=== PATIENT | female | born 1955 | race Caucasian/White ===

== ENCOUNTER 2019-12-09 16:20 | Inpatient (IN) | payer BC ==
[~2019-12-09] VITALS: Ht 167.6 cm; Wt 65.3 kg
[2019-12-09] MEDS ORDERED: PROGESTERONE200 MG PO (16:38)
[2019-12-09] MEDS ORDERED: ARMOUR THYROID30 MG ORAL (16:38)
--- NOTE | 2019-12-09 17:07 | NUR ---
ED Nurse Note: Patient was brought in by ambulance from surgery center for pain management, stated received uterine fibroid embolization today. Patient presented calm, c/o pain 3/10, AAO x4, VSS at this time.
[2019-12-09 17:10] VITALS: BP 120/72
--- NOTE | 2019-12-09 17:13 | NUR ---
ED Nurse Note: Patient presented with IV access right AC 22 ga.
--- NOTE | 2019-12-09 17:14 | Emergency Room Report ---
History of Present Illness General Chief Complaint: Pain Source: Patient Present Illness HPI Patient is a 63-year-old female brought in from surgery Center for increased suprapubic pain. Patient had a recent uterine artery embolization. This was performed by Dr. Richard Duffy. Patient had some slight dizziness after the procedure and has some suprapubic pain. Denies any chest discomfort or shortness of breath. she had recent travel from [place]. Denies any other current complaints. Prior history of fibroids. Also has been taking thyroid medication. 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 Patient History Past Medical History: see triage record Reviewed Nursing Documentation: PMH: Agreed; PSxH: Agreed Nursing Documentation-PMH Past Medical History: No History, Except For Hx Cancer: Yes - Left breast CA with lumpectomy Review of Systems All Other Systems: negative except mentioned in HPI Physical Exam Vital Signs Date Time Temp Pulse Resp B/P (MAP) Pulse Ox O2 Delivery O2 Flow Rate FiO2 12/09/19 16:30 98.2 80 16 120/72 (88) 99 Room Air Sp02 EP Interpretation: reviewed, normal General Appearance: normal inspection, well appearing, no apparent distress, alert, GCS 15 Head: atraumatic ENT: normal ENT inspection, hearing grossly normal, normal voice Neck: normal inspection, full range of motion, supple, no bony tend Respiratory: normal inspection, lungs clear, normal breath sounds, no respiratory distress, no retraction, no wheezing Cardiovascular #1: regular rate, rhythm, no edema Gastrointestinal: normal inspection, normal bowel sounds, non tender, soft, no guarding, no hernia Genitourinary: no CVA tenderness Musculoskeletal: normal inspection, back normal, normal range of motion Neurologic: alert, motor strength/tone normal, stock grader III-XII nml as tested, oriented x3, responsive, speech normal, normal inspection Psychiatric: normal inspection, judgement/insight normal, mood/affect normal Skin: no rash Medical Decision Making Diagnostic Impression: Primary Impression: Postoperative abdominal pain ER Course Patient presented for postoperative pain. Differential diagnosis include was not limited to urinary tract infection, post procedure pain, among others. Patient has a benign exam and does not appear to require any imaging or laboratory testing at this time. Patient was noted to have postoperative pain and this appears to be Related to recent procedure. Patient would be admitted to the hospital for further evaluation and treatment. Dr. Krause was contacted for inpatient management due to primary care request. Last Vital Signs Date Time Temp Pulse Resp B/P (MAP) Pulse Ox O2 Delivery O2 Flow Rate FiO2 12/09/19 16:30 98.2 80 16 120/72 (88) 99 Room Air Status: unchanged Disposition: ADMITTED INPATIENT Condition: Stable Josh Dias MD Dec 09, 2019 17:14
[2019-12-09] MEDS ORDERED: HYDROmorphone 1mg/ml Carpuject IVP PRN (18:00)
--- NOTE | 2019-12-09 18:32 | NUR ---
ED Nurse Note: Patient was transfered to the MD due to pain managmentn after her surgery. Patient was transfered to the unit via gurney, with all belongings. Patient AAO x4, VSS at this time.
--- NOTE | 2019-12-09 18:40 | NUR ---
NURSE NOTES: Received pt from ER, pt arrived via gurney, pt transferred self to the bed. Pt is a/ox4, breaths regular unlabored on RA , c/o pain of 4/10. pt has a Calixto catheter 16fr, draining, and anchored, skin intact , IVF on Rt AC , patent asymptomatic, belongings list verified and signed. Pt oriented to the room, bed in low locked position, side rails upx2, call light with in teach, will continue to monitor
--- NOTE | 2019-12-09 19:49 | NUR ---
HAND-OFF: Report given to Nhan ALLEN, pt stable.
[2019-12-09 20:00] VITALS: BP 126/72
[2019-12-09] MEDS ORDERED: MIRALAX17 G2 ORAL (20:17)
[2019-12-09] MEDS: Miralax 17gm pkt ORAL SCH (20:30)
[2019-12-09] MEDS: oxyCODONE HCL/Acetaminophen 5/325mg ORAL PRN (20:35)
[2019-12-09] MEDS ORDERED: Potassium Chloride 20 MEQ in Dextrose 5%/Lactated Ringer's 1,000 ML IV SCH (21:00)
--- NOTE | 2019-12-09 21:00 | NUR ---
NURSE NOTES: Patient vomited once with yellow bile. Zofran PO was given due to nausea but it didn't appear on the vomitus. Will continue to monitor.
--- NOTE | 2019-12-09 22:00 | NUR ---
NURSE NOTES: Received patient in bed, alert and oriented x4, no SOB noted. IV access on the right antecubital g.22. In pain of 4-6/10 on lower abdomen due to procedure she had today in surgery center. Skin assessment done. Surgery site on the right groin covered with steristrips and Suresite with blood stain. Found scrapes on left elbow, left knee and some parts of bilateral lower legs. According to patient, she fell recently. Got tripped while reading. Some tiny scrapes on legs are from shaving per patient. Oriented to room. Instructed to use call light for assistance. Bed in lowest, lock engaged and alarm on. Will monitor. Spoke with Dr. Krause and obtained some orders including patient's request of Percocet and Tramadol PO. Spoke with pharmacy regarding unavailability of Progesterone. Called Dr. Stewart and left message. Waiting for call back.
[2019-12-09] MEDS: Potassium Chloride 20 MEQ in Dextrose 5%/Lactated Ringer's 1,000 ML IV SCH (23:00)
[2019-12-10] MEDS: HYDROmorphone 1mg/ml Carpuject IVP PRN ×2 (00:50→04:03)
[2019-12-10 00:55] VITALS: BP 121/68
[2019-12-10 04:50] VITALS: BP 99/52
--- NOTE | 2019-12-10 04:59 | NUR ---
NURSE NOTES: Three hours after Percocet was given, patient was still complaining of the same pain. Encouraged patient to try the IV pain med which was first ordered and bedside teaching done. Advised patient to have at least the lowest dose of IV pain shot. Almost 4 hours after the IV pain med was given patient asked for another one which she said it helped a lot with her pain. Dilaudid was given as ordered.
[2019-12-10] MEDS: Potassium Chloride 20 MEQ in Dextrose 5%/Lactated Ringer's 1,000 ML IV SCH ×3 (06:29→16:03)
--- NOTE | 2019-12-10 07:24 | NUR ---
HAND-OFF: Report given to ALEJANDRO Hurt.
--- NOTE | 2019-12-10 07:33 | NUR ---
NURSE NOTES: WALKING ROUNDS DONE WITH OUTGOING RN. PATIENT AWAKE IN BED. QUESTIONS ANSWERED NEEDS MET. DISCUSSED PLAN OF CARE FOR THE DAY. VERBALIZED UNDERSTANDING.POST-OP PAIN IMPROVED WITH IV DILAUDID. PATIENT AGREES TO HAVE FERNANDO CASTLE'Barry THIS AM.BED IN LOW AND LOCKED POSITION. CALL LIGHT WITHIN REACH.
[2019-12-10 08:00] VITALS: BP 140/62
[2019-12-10 09:53] LABS: HEMATOCRIT 35.8 % (37.0-47.0); HEMOGLOBIN 12.7 G/DL (12.0-16.0); MEAN CORPUSCULAR VOLUME 87 FL (80-99); PLATELET COUNT 220 K/UL (150-450); RED BLOOD COUNT 4.12 M/UL (4.20-5.40); RED CELL DISTRIBUTION WIDTH 10.9 % (11.6-14.8); WHITE BLOOD COUNT 9.9 K/UL (4.8-10.8)
--- NOTE | 2019-12-10 09:55 | NUR ---
*-* INSURANCE *-* ALL AVAILABLE CLINICALS HAVE BEEN FAXED TO: [facility] Ref# [id number] #[phone] fax#[phone]
[2019-12-10 10:08] LABS: ANION GAP 11 mmol/L (5-15); BLOOD UREA NITROGEN 8 mg/dL (7-18); CALCIUM 8.5 MG/DL (8.5-10.1); CARBON DIOXIDE 24 MMOL/L (21-32); CHLORIDE 107 MMOL/L (98-107); CREATININE 0.9 MG/DL (0.55-1.30); POTASSIUM 3.6 MMOL/L (3.5-5.1); SODIUM 142 MMOL/L (136-145)
[2019-12-10 10:12] LABS: ALANINE AMINOTRANSFERASE 12 U/L (12-78); ALBUMIN 2.8 G/DL (3.4-5.0); ALKALINE PHOSPHATASE 146 U/L (46-116); ASPARTATE AMINO TRANSFERASE 14 U/L (15-37); BILIRUBIN,TOTAL 0.4 MG/DL (0.2-1.0)
[2019-12-10] MEDS: Miralax 17gm pkt ORAL SCH (10:16)
--- NOTE | 2019-12-10 10:26 | History and Physical ---
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 She denied chest pain , she denied shortness of breath. Upon evaluation she was afebrile ,vital signs were stable. Patient admitted for management for postoperative abdominal pain. Per patient pain was 6/10 on a scale 1 to 10, she had 1 episode of nonbloody nonbilious emesislasy night. She received analgesics and antiemetic. She slept well last night. No bleeding from surgical site, No vaginal bleeding or discharge. This am she is felling better, labs pending, pain controlled, tolerated CL diet Allergies: Coded Allergies: CLINDAMYCIN (Verified Allergy, Unknown, 12/09/19) Dairy (Verified Allergy, Unknown, 12/10/19) EGG (Verified Allergy, Unknown, 12/10/19) GLUTEN (Verified Allergy, Unknown, 12/10/19) Throat swelling. MELOXICAM (Verified Allergy, Unknown, 12/09/19) MILK (Verified Allergy, Unknown, 12/10/19) PENICILLINS (Verified Allergy, Unknown, 12/09/19) SOY (Verified Allergy, Unknown, 12/10/19) Throat swelling. COVID-19 Screening Contact w/high risk pt: No Recent Travel to affected area: No Experienced COVID-19 symptoms?: No Medication History Scheduled Polyethylene Glycol 3350* (Miralax*), 17 GM ORAL DAILY, (Reported) Progesterone,Micronized (Progesterone), 200 MG PO BEDTIME, (Reported) Thyroid* ([place] Thyroid*), 90 MG ORAL DAILY, (Reported) Patient History Healthcare decision maker Resuscitation status Full code Advanced Directive on File Review of Systems Constitutional: Reports: no symptoms Eye: Reports: no symptoms ENT: Reports: no symptoms Respiratory: Reports: no symptoms Cardiovascular: Reports: no symptoms Gastrointestinal: Reports: see HPI Genitourinary: Reports: no symptoms Skin: Reports: no symptoms Psychiatric: Reports: no symptoms Neurological: Reports: no symptoms Endocrine: Reports: other - hx of Roxi disease Hematologic/Lymphatic: Reports: no symptoms Physical Exam General Appearance: WD/WN, no apparent distress, alert - awake Lines, tubes and drains: peripheral HEENT: normocephalic, atraumatic, anicteric, mucous membranes moist, PERRL Neck: non-tender, supple, normal inspection Respiratory/Chest: chest wall non-tender, lungs clear, no respiratory distress , no accessory muscle use Cardiovascular/Chest: normal peripheral pulses, normal rate, no JVD Abdomen: normal bowel sounds, non tender, soft, other - Band-aid R groin area Extremities: normal range of motion, non-tender, no calf tenderness, other - SCD on Skin Exam: warm/dry 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 II-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 grossly normal, no motor/sensory deficits, alert, oriented x 3, responsive Musculoskeletal: normal muscle bulk Last 24 Hour Vital Signs Date Time Temp Pulse Resp B/P (MAP) Pulse Ox O2 Delivery O2 Flow Rate FiO2 12/10/19 09:00 Room Air 12/10/19 08:00 98.0 83 20 140/62 (88) 98 12/10/19 04:50 98.6 82 18 99/52 (68) 96 12/10/19 00:55 98.3 75 17 121/68 (85) 98 12/09/19 23:20 Room Air 12/09/19 20:00 98.0 77 18 126/72 (90) 100 12/09/19 18:32 98.2 73 20 135/65 99 Room Air 12/09/19 17:10 98.2 16 120/72 99 Room Air 12/09/19 16:30 98.2 80 16 120/72 (88) 99 Room Air Intake and Output 12/09/19 12/10/19 19:00 07:00 Intake Total 1240 ml Output Total 200 ml 600 ml Balance -200 ml 640 ml Intake Oral 300 ml IV Total 940 ml Output Urine Total 200 ml 600 ml # Bowel Movements 2 Laboratory Tests Test 12/10/19 09:45 White Blood Count 9.9 K/UL (4.8-10.8) Red Blood Count 4.12 M/UL (4.20-5.40) L Hemoglobin 12.7 G/DL (12.0-16.0) Hematocrit 35.8 % (37.0-47.0) L Mean Corpuscular Volume 87 FL (80-99) Mean Corpuscular Hemoglobin 30.9 PG (27.0-31.0) Mean Corpuscular Hemoglobin Concent 35.5 G/DL (32.0-36.0) Red Cell Distribution Width 10.9 % (11.6-14.8) L Platelet Count 220 K/UL (150-450) Mean Platelet Volume 5.7 FL (6.5-10.1) L Neutrophils (%) (Auto) % (45.0-75.0) Lymphocytes (%) (Auto) % (20.0-45.0) Monocytes (%) (Auto) % (1.0-10.0) Eosinophils (%) (Auto) % (0.0-3.0) Basophils (%) (Auto) % (0.0-2.0) Neutrophils % (Manual) Pending Lymphocytes % (Manual) Pending Platelet Estimate Pending Platelet Morphology Pending Sodium Level 142 MMOL/L (136-145) Potassium Level 3.6 MMOL/L (3.5-5.1) Chloride Level 107 MMOL/L (98-107) Carbon Dioxide Level 24 MMOL/L (21-32) Anion Gap 11 mmol/L (5-15) Blood Urea Nitrogen 8 mg/dL (7-18) Creatinine 0.9 MG/DL (0.55-1.30) Estimat Glomerular Filtration Rate > 60 mL/min (>60) Glucose Level 148 MG/DL (74-106) H Calcium Level 8.5 MG/DL (8.5-10.1) Total Bilirubin Pending Aspartate Amino Transf (AST/SGOT) Pending Alanine Aminotransferase (ALT/SGPT) Pending Alkaline Phosphatase Pending Total Protein Pending Albumin Pending Globulin Pending Height (Feet): 5 Height (Inches): 6.00 Weight (Pounds): 144 Medications Current Medications Medications (Trade) Dose Ordered Sig/Andree Route PRN Reason Start Time Stop Time Status Last Admin Dose Admin Acetaminophen (Tylenol) 650 mg Q4H PRN ORAL Mild Pain (Pain Scale 1-3) 12/09/19 20:15 01/08/20 20:14 Hydromorphone HCl (Dilaudid) 1 mg Q3H PRN IVP pain 1-3 12/09/19 20:30 12/16/19 17:59 12/10/19 04:03 Hydromorphone HCl (Dilaudid) 2 mg Q2H PRN IVP PAIN 7-10 12/09/19 20:30 12/16/19 17:59 Hydromorphone HCl (Dilaudid) 2 mg Q3H PRN IVP pain 4-6 12/09/19 20:30 12/16/19 18:16 Metronidazole 100 ml @ 100 mls/hr Q12HR IVPB 12/09/19 21:00 12/16/19 20:59 12/10/19 08:50 Non-Formulary Medication (Non-Formulary Med) 1 ea DAILY ORAL 12/09/19 20:15 01/08/20 20:14 UNV Ondansetron HCl (Zofran ODT) 4 mg Q4H PRN ORAL Nausea & Vomiting 12/09/19 20:15 01/08/20 20:14 12/09/19 20:31 Ondansetron HCl (Zofran) 4 mg Q4H PRN IVP Nausea & Vomiting 12/09/19 20:15 01/08/20 20:14 12/10/19 00:43 Oxycodone/ Acetaminophen (Percocet 5-325) 1 tab Q6H PRN ORAL Severe Pain (Pain Scale 7-10) 12/09/19 20:10 12/16/19 20:09 12/09/19 20:35 Polyethylene Glycol (Miralax) 17 gm DAILY ORAL 12/09/19 20:30 01/08/20 20:29 Potassium Chloride 20 meq/ Dextrose/Lactated Ringer's 1,010 ml @ 120 mls/hr Q8H25M IV 12/09/19 21:00 01/08/20 20:59 12/10/19 06:29 Thyroid ([place] Thyroid) 90 mg ACBREAKFAST ORAL 12/10/19 07:30 01/09/20 07:29 12/10/19 07:05 Thyroid ([place] Thyroid) 90 mg ACBREAKFAST ORAL 12/11/19 06:30 01/10/20 06:29 Tramadol HCl (Ultram) 50 mg Q6H PRN ORAL Moderate Pain (Pain Scale 4-6) 12/09/19 20:15 6/9/20 20:14 Assessment/Plan Assessment/Plan: ASSESSMENT Postoperative pain Nausea with emesis episode s/p uterine artery embolization 12/08 uterine fibroids hx of breast Ca, currently cancer free Roxi thyroiditis PLAN OF CARE MS floor IVF empiric Flagyl pain management CL diet- tolerates and advance as tolerated a/emetic prn DVT prophylaxis with SCD fup with labs /pending for this am OOB as tolerated fall precautions /recent fall dc plan soon if pain controlled and labs stable case discussed and evaluated by supervising physician Mariusz Krause MD 12/10/19 1120: History of Present Illness General Reason for Hospitalization: =postoperative pain Present Illness Allergies: Coded Allergies: CLINDAMYCIN (Verified Allergy, Unknown, 12/09/19) Dairy (Verified Allergy, Unknown, 12/10/19) EGG (Verified Allergy, Unknown, 12/10/19) GLUTEN (Verified Allergy, Unknown, 12/10/19) Throat swelling. MELOXICAM (Verified Allergy, Unknown, 12/09/19) MILK (Verified Allergy, Unknown, 12/10/19) PENICILLINS (Verified Allergy, Unknown, 12/09/19) SOY (Verified Allergy, Unknown, 12/10/19) Throat swelling. Medication History Scheduled Polyethylene Glycol 3350* (Miralax*), 17 GM ORAL DAILY, (Reported) Progesterone,Micronized (Progesterone), 200 MG PO BEDTIME, (Reported) Thyroid* ([place] Thyroid*), 90 MG ORAL DAILY, (Reported) Assessment/Plan Assessment/Plan: Patient seen and examined with PAINTING SUPERVISOR. Agree with above A&P as it reflects our joint deliberations. POD 1 S/P UFE, doing well, pain controlled, continue Flagyl, anticipate D/C in am. Soraida Talley NP Dec 10, 2019 10:26 Mariusz Krause MD Dec 10, 2019 11:20
[2019-12-10 12:00] VITALS: BP 127/61
[2019-12-10] MEDS: traMADol 50mg tab ORAL PRN (12:17)
--- NOTE | 2019-12-10 14:38 | NUR ---
CASE MANAGEMENT: INITIAL REVIEW 63YR FEMALE BIBA FROM SURGERY CENTER CC: PAIN MANAGEMENT; S/P UTERINE FIBROID EMBOLIZATION SI: SURGICAL POST PROCEDURE PAIN; S/P ABLATION 98.3 80 16 120/72 99% ON RA IS:IV FLAGYL BID IV KCL/D5/LR @120ML/HR PERCOCET Q6HR/PRN PO ZOFRAN Q4HR/PRN \: [facility] CASE MANAGEMENT: REVIEW 12/10/19 SI: SURGICAL POST PROCEDURE PAIN; S/P ABLATION 97.9 84 20 127/61 96% ON RA BG 148 AST 14 ALKP 146 ALBUMIN 2.8 IS:IV FLAGYL BID IV KCL/D5/LR @120ML/HR PERCOCET Q6HR/PRN DILAUDID Q3HR/PRN IV ZOFRAN Q4HR/PRN THYROID PO QAM \: [facility] PLAN: CONTROL PAIN DC HOME ONCE PAIN IS CONTROLLED
--- NOTE | 2019-12-10 14:51 | General Surgery Progress Note ---
General Surgery-Progress Note Subjective Day of Surgery: december 08 Procedure Performed uterine fibroid embolization Symptoms: improved, tolerating diet, voiding well, passing flatus, pain decreased Objective Last 24 Hour Vital Signs Date Time Temp Pulse Resp B/P (MAP) Pulse Ox O2 Delivery O2 Flow Rate FiO2 12/10/19 12:47 98.0 12/10/19 12:00 97.9 84 20 127/61 (83) 96 12/10/19 09:00 Room Air 12/10/19 08:00 98.0 83 20 140/62 (88) 98 12/10/19 04:50 98.6 82 18 99/52 (68) 96 12/10/19 00:55 98.3 75 17 121/68 (85) 98 12/09/19 23:20 Room Air 12/09/19 20:00 98.0 77 18 126/72 (90) 100 12/09/19 18:32 98.2 73 20 135/65 99 Room Air 12/09/19 17:10 98.2 16 120/72 99 Room Air 12/09/19 16:30 98.2 80 16 120/72 (88) 99 Room Air I&O Intake and Output 12/09/19 12/10/19 19:00 07:00 Intake Total 1240 ml Output Total 200 ml 600 ml Balance -200 ml 640 ml Intake Oral 300 ml IV Total 940 ml Output Urine Total 200 ml 600 ml # Bowel Movements 2 Dressing: dry Wound: clean Drains: none Cardiovascular: RSR Respiratory: clear Abdomen: soft, flat, scaphoid, tenderness, present bowel sounds Laboratory Tests Test 12/10/19 09:45 White Blood Count 9.9 K/UL (4.8-10.8) Red Blood Count 4.12 M/UL (4.20-5.40) L Hemoglobin 12.7 G/DL (12.0-16.0) Hematocrit 35.8 % (37.0-47.0) L Mean Corpuscular Volume 87 FL (80-99) Mean Corpuscular Hemoglobin 30.9 PG (27.0-31.0) Mean Corpuscular Hemoglobin Concent 35.5 G/DL (32.0-36.0) Red Cell Distribution Width 10.9 % (11.6-14.8) L Platelet Count 220 K/UL (150-450) Mean Platelet Volume 5.7 FL (6.5-10.1) L Neutrophils (%) (Auto) % (45.0-75.0) Lymphocytes (%) (Auto) % (20.0-45.0) Monocytes (%) (Auto) % (1.0-10.0) Eosinophils (%) (Auto) % (0.0-3.0) Basophils (%) (Auto) % (0.0-2.0) Differential Total Cells Counted 100 Neutrophils % (Manual) 58 % (45-75) Lymphocytes % (Manual) 32 % (20-45) Monocytes % (Manual) 10 % (1-10) Eosinophils % (Manual) 0 % (0-3) Basophils % (Manual) 0 % (0-2) Band Neutrophils 0 % (0-8) Platelet Estimate Adequate Platelet Morphology Normal Red Blood Cell Morphology Normal Sodium Level 142 MMOL/L (136-145) Potassium Level 3.6 MMOL/L (3.5-5.1) Chloride Level 107 MMOL/L (98-107) Carbon Dioxide Level 24 MMOL/L (21-32) Anion Gap 11 mmol/L (5-15) Blood Urea Nitrogen 8 mg/dL (7-18) Creatinine 0.9 MG/DL (0.55-1.30) Estimat Glomerular Filtration Rate > 60 mL/min (>60) Glucose Level 148 MG/DL (74-106) H Calcium Level 8.5 MG/DL (8.5-10.1) Total Bilirubin 0.4 MG/DL (0.2-1.0) Aspartate Amino Transf (AST/SGOT) 14 U/L (15-37) L Alanine Aminotransferase (ALT/SGPT) 12 U/L (12-78) Alkaline Phosphatase 146 U/L (46-116) H Total Protein 5.6 G/DL (6.4-8.2) L Albumin 2.8 G/DL (3.4-5.0) L Globulin 2.8 g/dL Albumin/Globulin Ratio 1.0 (1.0-2.7) Additional Comments labs, all normal, afebrile. pain decreasing, attempting oral pain management Plan Additional Comments possible am discharge, s/w IM Richard Cervantes MD Dec 10, 2019 14:51
[2019-12-10 16:00] VITALS: BP 115/56
--- NOTE | 2019-12-10 16:39 | NUR ---
NURSE NOTES: Spoke to regarding patient and discharge patient with IV line. Order noted and carried out.
--- NOTE | 2019-12-10 16:40 | NUR ---
NURSE NOTES: Called and left massage that wants discharge patient tomorrow morning.
--- NOTE | 2019-12-10 17:31 | NUR ---
NURSE NOTES: PATIENT REMAINS STABLE.UP AMBULATING INDEPENDENTLY. GAIT STEADY.PAIN CONTROLLED WITH ULTRAM. VOIDING WITHOUT DIFFICULTY. DIET ADVANCED TO SOFT; TOLERATING WELL.
--- NOTE | 2019-12-10 19:30 | NUR ---
HAND-OFF: Report given to JENNIFER NIX RN.
--- NOTE | 2019-12-10 19:30 | NUR ---
NURSE NOTES: Receive a report from ALEJANDRO Hurt. Round is done. Pt is awake and alert. No acute distress noted. Pain is tolerating and thinking of taking which medication she would like to take. Right groin site surgical site dressing old oozing noted. Will continue to monitor.
[2019-12-10 20:00] VITALS: BP 122/78
[2019-12-10] MEDS: oxyCODONE HCL/Acetaminophen 5/325mg ORAL PRN (20:25)
[2019-12-10] MEDS ORDERED: PROGESTERONE 100 MG ORAL SCH (21:00)
[2019-12-11] VITALS: BP 140/70
--- NOTE | 2019-12-11 | NUR ---
NURSE NOTES: Pt is asleep without acute distress or pain at this time. Pt is aware of MNNPO for procedure/surgery today. Will continue to monitor.
[2019-12-11] MEDS: Potassium Chloride 20 MEQ in Dextrose 5%/Lactated Ringer's 1,000 ML IV SCH (01:09)
[2019-12-11] MEDS: traMADol 50mg tab ORAL PRN (01:31)
[2019-12-11] MEDS: oxyCODONE HCL/Acetaminophen 5/325mg ORAL PRN (03:55)
[2019-12-11 04:00] VITALS: BP 132/74
--- NOTE | 2019-12-11 04:00 | NUR ---
NURSE NOTES: Establish 20G IV on right forearm and will keep IV site for today's procedure.
[2019-12-11 06:24] LABS: BASOPHILS % (AUTO) 0.8 % (0.0-2.0); EOSINOPHILS % (AUTO) 0.6 % (0.0-3.0); HEMATOCRIT 37.7 % (37.0-47.0); HEMOGLOBIN 13.4 G/DL (12.0-16.0); LYMPHOCYTES % (AUTO) 27.4 % (20.0-45.0); MEAN CORPUSCULAR VOLUME 88 FL (80-99); MONOCYTES % (AUTO) 9.5 % (1.0-10.0); NEUTROPHILS % (AUTO) 61.8 % (45.0-75.0); PLATELET COUNT 202 K/UL (150-450); RED BLOOD COUNT 4.27 M/UL (4.20-5.40); RED CELL DISTRIBUTION WIDTH 10.9 % (11.6-14.8); WHITE BLOOD COUNT 10.7 K/UL (4.8-10.8)
[2019-12-11 06:53] LABS: ALANINE AMINOTRANSFERASE 18 U/L (12-78); ALBUMIN 2.7 G/DL (3.4-5.0); ALBUMIN/GLOBULIN RATIO 0.9 (1.0-2.7); ALKALINE PHOSPHATASE 136 U/L (46-116); ANION GAP 9 mmol/L (5-15); ASPARTATE AMINO TRANSFERASE 15 U/L (15-37); BILIRUBIN,TOTAL 0.3 MG/DL (0.2-1.0); BLOOD UREA NITROGEN 9 mg/dL (7-18); CALCIUM 8.3 MG/DL (8.5-10.1); CARBON DIOXIDE 26 MMOL/L (21-32); CHLORIDE 103 MMOL/L (98-107); CREATININE 0.7 MG/DL (0.55-1.30); POTASSIUM 4.2 MMOL/L (3.5-5.1); SODIUM 138 MMOL/L (136-145)
--- NOTE | 2019-12-11 07:30 | NUR ---
HAND-OFF: Report given to ALEJANDRO Magallanes. Round is done.
--- NOTE | 2019-12-11 07:35 | NUR ---
NURSE NOTES: Patient sitting in bed awake. No complain of pain or distress at this time. Skin intact and dry. Surgical dressing intact and dry. IV dressing intact and dry. Bed lowest position. Call light within reach. Will continue to monitor.
--- NOTE | 2019-12-11 07:55 | NUR ---
NURSE NOTES: Spoke to Dr. Krause regarding discharge and ok to discharge patient today. Order noted and carried out.
--- NOTE | 2019-12-11 08:55 | Pulmonology Progress Note ---
Soraida Talley RECEIVING TANK OPERATOR 12/11/19 0855: Subjective Allergies: Coded Allergies: CLINDAMYCIN (Verified Allergy, Unknown, 12/09/19) Dairy (Verified Allergy, Unknown, 12/10/19) EGG (Verified Allergy, Unknown, 12/10/19) GLUTEN (Verified Allergy, Unknown, 12/10/19) Throat swelling. MELOXICAM (Verified Allergy, Unknown, 12/09/19) MILK (Verified Allergy, Unknown, 12/10/19) PENICILLINS (Verified Allergy, Unknown, 12/09/19) SOY (Verified Allergy, Unknown, 12/10/19) Throat swelling. Subjective slept well pain controlled another procedure later today as OP all labs stable slightly nauseating, but kept NPO since MN for procedure Objective Last 24 Hour Vital Signs Date Time Temp Pulse Resp B/P (MAP) Pulse Ox O2 Delivery O2 Flow Rate FiO2 12/11/19 04:00 98.4 77 16 132/74 (93) 97 12/11/19 00:00 98.4 70 16 140/70 (93) 97 12/10/19 21:00 Room Air 12/10/19 20:00 98.6 91 16 122/78 (93) 96 12/10/19 16:00 98.1 91 20 115/56 (75) 96 12/10/19 12:47 98.0 12/10/19 12:00 97.9 84 20 127/61 (83) 96 12/10/19 09:00 Room Air Intake and Output 12/10/19 12/11/19 19:00 07:00 Intake Total 2620 ml 1440 ml Balance 2620 ml 1440 ml Intake Oral 1320 ml IV Total 1300 ml 1440 ml # Voids 5 2 # Bowel Movements 1 1 Objective General Appearance: WD/WN, no apparent distress, alert - awake Lines, tubes and drains: peripheral HEENT: normocephalic, atraumatic, anicteric, mucous membranes moist, PERRL Neck: non-tender, supple, normal inspection Respiratory/Chest: chest wall non-tender, lungs clear, no respiratory distress , no accessory muscle use Cardiovascular/Chest: normal peripheral pulses, normal rate, no JVD Abdomen: normal bowel sounds, non tender, soft, other - Band-aid R groin area Extremities: normal range of motion, non-tender, no calf tenderness, other - SCD on Skin Exam: warm/dry 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 grossly normal, no motor/sensory deficits, alert, oriented x 3, responsive Musculoskeletal: normal muscle bulk Laboratory Tests 12/10/19 09:45: White Blood Count 9.9, Red Blood Count 4.12L, Hemoglobin 12.7, Hematocrit 35.8L , Mean Corpuscular Volume 87, Mean Corpuscular Hemoglobin 30.9, Mean Corpuscular Hemoglobin Concent 35.5, Red Cell Distribution Width 10.9L, Platelet Count 220, Mean Platelet Volume 5.7L, Neutrophils (%) (Auto) , Lymphocytes (%) (Auto) , Monocytes (%) (Auto) , Eosinophils (%) (Auto) , Basophils (%) (Auto) , Differential Total Cells Counted 100, Neutrophils % ( Manual) 58, Lymphocytes % (Manual) 32, Monocytes % (Manual) 10, Eosinophils % ( Manual) 0, Basophils % (Manual) 0, Band Neutrophils 0, Platelet Estimate Adequate, Platelet Morphology Normal, Red Blood Cell Morphology Normal, Sodium Level 142, Potassium Level 3.6, Chloride Level 107, Carbon Dioxide Level 24, Anion Gap 11, Blood Urea Nitrogen 8, Creatinine 0.9, Estimat Glomerular Filtration Rate > 60, Glucose Level 148H, Calcium Level 8.5, Total Bilirubin 0.4 , Aspartate Amino Transf (AST/SGOT) 14L, Alanine Aminotransferase (ALT/SGPT) 12 , Alkaline Phosphatase 146H, Total Protein 5.6L, Albumin 2.8L, Globulin 2.8, Albumin/Globulin Ratio 1.0 12/11/19 05:20: White Blood Count 10.7, Red Blood Count 4.27, Hemoglobin 13.4, Hematocrit 37.7, Mean Corpuscular Volume 88, Mean Corpuscular Hemoglobin 31.3H, Mean Corpuscular Hemoglobin Concent 35.5, Red Cell Distribution Width 10.9L, Platelet Count 202, Mean Platelet Volume 6.4L, Neutrophils (%) (Auto) 61.8, Lymphocytes (%) (Auto) 27.4, Monocytes (%) (Auto) 9.5, Eosinophils (%) (Auto) 0.6, Basophils (%) (Auto ) 0.8, Sodium Level 138, Potassium Level 4.2, Chloride Level 103, Carbon Dioxide Level 26, Anion Gap 9, Blood Urea Nitrogen 9, Creatinine 0.7, Estimat Glomerular Filtration Rate > 60, Glucose Level 126H, Calcium Level 8.3L, Total Bilirubin 0.3, Aspartate Amino Transf (AST/SGOT) 15, Alanine Aminotransferase ( ALT/SGPT) 18, Alkaline Phosphatase 136H, Total Protein 5.7L, Albumin 2.7L, Globulin 3.0, Albumin/Globulin Ratio 0.9L Current Medications Medications (Trade) Dose Ordered Sig/Andree Route PRN Reason Start Time Stop Time Status Last Admin Dose Admin Acetaminophen (Tylenol) 650 mg Q4H PRN ORAL Mild Pain (Pain Scale 1-3) 12/09/19 20:15 01/08/20 20:14 Hydromorphone HCl (Dilaudid) 1 mg Q3H PRN IVP pain 1-3 12/09/19 20:30 12/16/19 17:59 12/10/19 04:03 Hydromorphone HCl (Dilaudid) 2 mg Q2H PRN IVP PAIN 7-10 12/09/19 20:30 12/16/19 17:59 Hydromorphone HCl (Dilaudid) 2 mg Q3H PRN IVP pain 4-6 12/09/19 20:30 12/16/19 18:16 Metronidazole 100 ml @ 100 mls/hr Q12HR IVPB 12/09/19 21:00 12/16/19 20:59 12/10/19 20:26 Ondansetron HCl (Zofran ODT) 4 mg Q4H PRN ORAL Nausea & Vomiting 12/09/19 20:15 01/08/20 20:14 12/09/19 20:31 Ondansetron HCl (Zofran) 4 mg Q4H PRN IVP Nausea & Vomiting 12/09/19 20:15 01/08/20 20:14 12/11/19 08:28 Oxycodone/ Acetaminophen (Percocet 5-325) 1 tab Q6H PRN ORAL Severe Pain (Pain Scale 7-10) 12/09/19 20:10 12/16/19 20:09 12/11/19 03:55 Patient Own Medication (Patient's Own Med) 2 ea QHS ORAL 12/10/19 21:00 01/09/20 20:59 12/10/19 20:25 Polyethylene Glycol (Miralax) 17 gm DAILY ORAL 12/09/19 20:30 01/08/20 20:29 12/10/19 10:16 Potassium Chloride 20 meq/ Dextrose/Lactated Ringer's 1,010 ml @ 120 mls/hr Q8H25M IV 12/09/19 21:00 01/08/20 20:59 12/11/19 01:09 Thyroid ([place] Thyroid) 90 mg ACBREAKFAST ORAL 12/10/19 07:30 01/09/20 07:29 12/11/19 06:27 Thyroid ([place] Thyroid) 90 mg ACBREAKFAST ORAL 12/11/19 06:30 01/10/20 06:29 Tramadol HCl (Ultram) 50 mg Q6H PRN ORAL Moderate Pain (Pain Scale 4-6) 12/09/19 20:15 12/16/19 20:14 12/11/19 01:31 Assessment/Plan Assessment/Plan ASSESSMENT Postoperative pain Nausea with emesis episode s/p uterine artery embolization 12/08 uterine fibroids hx of breast Ca, currently cancer free Roxi thyroiditis PLAN OF CARE [facility] floor IVF empiric Flagyl pain management -pain controlled tolerated regular diet yesterday a/emetic prn DVT prophylaxis with SCD / pair of SCD ordered from CS, pt has her own but slightly small IS at bedside and encouraged to use labs stable fall precautions /recent fall dc today via [facility] to surgery center for uteroscopy and endometrial biopsy case discussed and evaluated by supervising physician Mariusz Krause MD 12/11/19 1424: Subjective Allergies: Coded Allergies: CLINDAMYCIN (Verified Allergy, Unknown, 12/09/19) Dairy (Verified Allergy, Unknown, 12/10/19) EGG (Verified Allergy, Unknown, 12/10/19) GLUTEN (Verified Allergy, Unknown, 12/10/19) Throat swelling. MELOXICAM (Verified Allergy, Unknown, 12/09/19) MILK (Verified Allergy, Unknown, 12/10/19) PENICILLINS (Verified Allergy, Unknown, 12/09/19) SOY (Verified Allergy, Unknown, 12/10/19) Throat swelling. Assessment/Plan Assessment/Plan Patient seen and examined with RECEIVING TANK OPERATOR, agree with above A&P as it reflects our joint deliberations. Patient discharged to outpatient surgery center for procedure with Dr. Duffy. Pain well controlled, AFVSS, flora PO, OOB. Soraida Talley NP Dec 11, 2019 08:55 Mariusz Krause MD Dec 11, 2019 14:24
--- NOTE | 2019-12-11 08:55 | NUR ---
NURSE NOTES: Patient discharged by [facility] in stable condition. Discharge instruction given to patient and verbalized understanding. Patient discharged with IV line as MD ordered. ID removed. Belonging and home medications given to patient. Patient ambulated out with all personal belongings with steady gait.
--- NOTE | 2019-12-11 16:05 | NUR ---
*-* INSURANCE *-* ALL AVAILABLE CLINICALS AND DISCHARGE INSTRUCTIONS (NO DISCHARGE4 SUMMARY IN THE SYSTEM) FAXED TO: [facility] Ref# [id number] #[phone] fax#[phone]
--- NOTE | 2019-12-12 11:52 | NUR ---
*-* NO DISCHARGE SUMMARY IN THE SYSTEM UNABLE TO SEND TO INS CO. *-*
--- NOTE | 2019-12-15 10:52 | Discharge Summary ---
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 She denied chest pain , she denied shortness of breath. Upon evaluation she was afebrile ,vital signs were stable. Patient admitted for management for postoperative abdominal pain. CONSULTANTS: surgeon Dr. López HOSPITAL COURSE: Patient admitted to medical surgical floor. Patient started on IV fluids and empiric antibiotic with Flagyl. Pain management was addressed. Pain was controlled. Patient slowly started on diet. Antiemetic were on board as needed. Patient was able to tolerate diet. Nausea and vomiting resolved. DVT prophylaxis with SCD provided. Incentive spirometry was taught and encouraged to use while in the bed. Fall precaution maintained. Labs remained stable. No fever , no leukocytosis. Patient had bowel movement. Diana Thyroid continued. Pain resolved. Patient clinically stabilized and was ready for discharge. FINAL DIAGNOSES: Postoperative pain Episode of nausea with emesis Status post uterine artery embolization 12/08 Uterine fibroids History of breast cancer, currently cancer free Roxi thyroiditis DISCHARGE MEDICATIONS: See Medication Reconciliation list. DISCHARGE INSTRUCTIONS: Patient was discharged via [facility] to surgery center for uteroscopy and endometrial biopsy. Follow-up with further recommendation of surgeon. Sroaida Talley NP Dec 15, 2019 10:52
--- NOTE | 2019-12-15 13:31 | NUR ---
*-* INSURANCE *-* DISCHARGE SUMMARY HAS BEEN FAXED TO: [facility] Ref# [id number] #[phone] fax#[phone]
== END 2019-12-11 08:55 | disposition home or self-care (01) | DRG 948 ==
LOC: EDBD 16:20 → EMR 17:15 → 3E 17:55 → EDBEDREQ 18:18
DX: G89.18 Other acute postprocedural pain (principal); E06.3 Autoimmune thyroiditis; Z88.1 Allergy status to other antibiotic agents; Z88.0 Allergy status to penicillin; Z88.8 Allergy status to other drugs, medicaments and biological substances; D25.9 Leiomyoma of uterus, unspecified; Z85.3 Personal history of malignant neoplasm of breast; R11.2 Nausea with vomiting, unspecified
CPT/HCPCS: 36415; 80053; 85007; 85025; 99285; J2405